=== PATIENT | male | born 1990 | race Caucasian/White ===

== ENCOUNTER 2023-10-24 10:04 | Day surgery (SDC) | payer BC, MEDICAID ==
[2023-10-24] VITALS (36 sets, daily range): BP systolic 115–156; BP diastolic 67–105; PULSE 16–104; RESP 10–24; TEMP 97.9; O2SAT 90–97
[~2023-10-24] VITALS: Ht 182.9 cm; Wt 106.6 kg
[2023-10-24] MEDS: cefazolin 2gm/D5W 100mL 100 ML IV ONE (05:30)
[2023-10-24] MEDS: tranexamic acid inj. 1,000 MG in normal saline IV soln 100ML IV ONE (05:30)
[~2023-10-24 10:04] MED LIST: ACET-1008 PO
[2023-10-24] MEDS: ringers solution, lacted 1,000 ML IV SCH (11:00)
[2023-10-24] MEDS: oxymetazoline 15 ML nasal spray NS ONE ×2 (11:00→15:13)
[2023-10-24] MEDS: acetaminophen 1,000mg/100ml IV 100 ML IV SCH (11:53)
[2023-10-24] MEDS: famotidine 20mg tablet PO ONE (11:54)
[2023-10-24] MEDS ORDERED: propofol 1000mg/100ml bottle 100 ML IV ONE (12:26)
[2023-10-24] MEDS ORDERED: LIDOcaine 4% LTA kit 4ml solution TP ONE (12:26)
[2023-10-24] MEDS ORDERED: sevoflurane 250ml liquid IH ONE (13:35)
[2023-10-24] MEDS ORDERED: fentaNYL/PF 50MCG/1 ML 2ML syringe ONE (13:37)
[2023-10-24] MEDS: cocaine 4% topical solution 4ml bottle ONE (14:53)
[2023-10-24] MEDS: epiNEPHrine 1 mg/ml 30ml MDV ONE (14:54)
[2023-10-24] MEDS: LIDOcaine 1% W/epiNEPHrine 1:100,000 20ml vial ONE (14:54)
[2023-10-24] MEDS: mupirocin 2% ointment 22GM ONE (15:13)
[2023-10-24] MEDS: Thrombin (Bovine) 5,000 unit vial TP ONE (15:14)
[2023-10-24] MEDS: dexamethasone 4mg/ml inj IM ONE (16:00)
[2023-10-24] MEDS ORDERED: ondansetron/PF 4mg/2ml inj ONE (16:11)
[2023-10-24] MEDS ORDERED: morphine 2 MG/ML inj. syringe IV PRN (16:40)
[2023-10-24] MEDS ORDERED: ringers solution, lacted 1,000 ML IV SCH (16:40)
[2023-10-24] MEDS ORDERED: ondansetron/PF 4mg/2ml inj IV PRN (16:40)
[2023-10-24] MEDS ORDERED: enalaprilat dihydrate 2.5mg/2ml vial IV PRN (16:40)
[2023-10-24] MEDS ORDERED: meperidine/PF 25mg/ml syringe IV PRN ×2 (16:40)
[2023-10-24] MEDS ORDERED: proCHLORperazine 10 MG/2 ml inj IV PRN (16:40)
[2023-10-24] MEDS ORDERED: meperidine/PF 25mg/ml syringe IV STA (17:06)
[2023-10-24] MEDS: meperidine/PF 25mg/ml syringe IV PRN (17:10)
[2023-10-24] MEDS: morphine 4 MG/ML inj SYRINge IV PRN (17:19)
[2023-10-24] MEDS: labetalol 20mg/4ml (5mg/ml) syringe IV PRN (17:54)
[2023-10-24] MEDS ORDERED: ketorolac trometh 30MG/ML vial 30 MG/ML VIAL IV STA (18:34)
[2023-10-24] MEDS ORDERED: acetaminophen 1,000mg/100ml IV 100 ML IV STA (18:34)
[2023-10-24] MEDS: ketorolac trometh 30MG/ML vial 30 MG/ML VIAL IV STA (18:52)
[2023-10-24] MEDS ORDERED: HYDROmorphone/PF 0.2 MG/ML SYRINGE IV PRN (19:05)
[2023-10-24] MEDS: HYDROmorphone/PF 0.2 MG/ML SYRINGE IV PRN (19:11)
[2023-10-24] MEDS: mupirocin 2% nasal ointment 1gm UD NS ONE (20:00)
[2023-10-24] MEDS: salt irrigation nasal spray 45 ML SPRAY NS ONE (20:01)
[2023-10-24] MEDS: HYDROcodone/acetaminophen 5mg/325mg tablet PO STA (21:26)
== END 2023-10-24 21:28 | disposition home or self-care (01) ==
LOC: PRE-OP 10:04
PROVIDERS: ATTEND Otolaryngology
DX: J34.2 Deviated nasal septum (principal); J34.3 Hypertrophy of nasal turbinates; J32.9 Chronic sinusitis, unspecified; E66.9 Obesity, unspecified; Z87.442 Personal history of urinary calculi; Z86.73 Personal history of transient ischemic attack (TIA), and cerebral infarction without residual deficits; Z68.31 Body mass index [BMI] 31.0-31.9, adult; Z88.8 Allergy status to other drugs, medicaments and biological substances
CPT/HCPCS: 30140; 30520; 31253; 31267; 61782; 82948; 87070; 87075; A6402; J0131; J0171; J0690; J1100; J1170; J1885; J2175; J2270; J2405; J2704; J3010; J3490; J7030; J7050; J7120; Z7506; Z7508; Z7512; A4618; A6449; A7000; C9250